=== PATIENT | female | born 1960 | race Caucasian/White ===

== ENCOUNTER 2020-09-14 08:29 | Observation (INO) | payer MEDICARE ==
[~2020-09-14] VITALS: Ht 162.6 cm; Wt 79.6 kg
[2020-09-14] MEDS ORDERED: CHLORHEXIDINE 15 ML UDC ONE (08:48)
[2020-09-14] MEDS ORDERED: LISI40TA9 PO (09:08)
[2020-09-14] MEDS ORDERED: VENL75TA PO (09:08)
[2020-09-14] MEDS ORDERED: ONDA4TAB7 PO (09:08)
[2020-09-14] MEDS ORDERED: LEVO137T3 PO (09:08)
[2020-09-14] MEDS ORDERED: IBUP-1623 PO (09:08)
[2020-09-14 09:15] VITALS: BP 120/72
[2020-09-14] MEDS ORDERED: LACTATED RINGERS 1,000 ML IV SCH (09:30)
[2020-09-14] MEDS ORDERED: CHLORHEXIDINE 15 ML UDC PO ONE (09:30)
[2020-09-14] MEDS ORDERED: FENTANYL PF 250 MCG/5ML ONE (09:54)
[2020-09-14] MEDS ORDERED: MIDAZOLAM 1 MG/ML, 2ML ONE (09:54)
[2020-09-14] MEDS ORDERED: ROCURONIUM 10MG/ML,5ML ONE (09:56)
[2020-09-14] MEDS ORDERED: PROPOFOL 10 MG/ML, 20ML ONE ×2 (09:56→11:23)
[2020-09-14] MEDS ORDERED: DEXAMETHASONE 4 MG/ML, 5ML ONE (09:56)
[2020-09-14 09:57] LABS: ALANINE AMINOTRANSFERASE 25 U/L (12-78); ALBUMIN 3.6 g/dL (3.4-5.0); ANION GAP 7 mmol/L (5-15); CALCIUM 9.1 mg/dL (8.5-10.1); CHLORIDE 112 mmol/L (98-107); CREATININE 0.95 mg/dL (0.55-1.02)
[2020-09-14 09:59] LABS: ALKALINE PHOSPHATASE 134 U/L (45-117); BILIRUBIN,TOTAL 0.2 mg/dL (0.2-1.0); TOTAL PROTEIN 7.5 g/dL (6.4-8.2)
[2020-09-14] MEDS ORDERED: SUCCINYLCHOLINE 20 MG/ML, 10ML ONE (10:10)
[2020-09-14] MEDS ORDERED: CEFAZOLIN 1,000 MG ONE (10:22)
[2020-09-14] MEDS ORDERED: MEPERIDINE/PF 25MG/0.5ML IVPush PRN (10:30)
[2020-09-14] MEDS ORDERED: MIDAZOLAM 1 MG/ML, 2ML IV PRN (10:30)
[2020-09-14] MEDS ORDERED: DIPHENHYDRAMINE 50 MG/ML, 1ML IVPush PRN ×2 (10:30)
[2020-09-14] MEDS ORDERED: LABETALOL 5MG/ML, 20ML IV PRN (10:30)
[2020-09-14] MEDS ORDERED: DIAZEPAM 5 MG/ML, 2ML IVPush PRN (10:30)
[2020-09-14] MEDS ORDERED: PROMETHAZINE 25 MG/ML, 1ML IVPush PRN (10:30)
[2020-09-14] MEDS ORDERED: ALBUTEROL SULFATE 2.5 MG/3 ML NPPB PRN (10:30)
[2020-09-14] MEDS ORDERED: ONDANSETRON 2MG/ML, 2ML IVPush PRN ×2 (10:30→12:00)
[2020-09-14] MEDS ORDERED: hydrALAzine 20 MG/ML, 1ML IV PRN ×2 (10:30→12:00)
[2020-09-14] MEDS ORDERED: EPHEDRINE 50 MG/ML, 1ML IVPush PRN (10:30)
[2020-09-14] MEDS ORDERED: PROMETHAZINE 12.5 MG SUPP PR PRN ×2 (10:30→12:00)
[2020-09-14] MEDS ORDERED: OXYcodone 5 MG/5 ML ORAL.SOL UDC PO PRN (10:30)
[2020-09-14] MEDS ORDERED: BUPIVACAINE/PF-EPI 0.5% 1:200K INFIL ONE (10:32)
[2020-09-14] MEDS ORDERED: GLYCOPYRROLATE 0.2MG/1ML, 5ML ONE (11:18)
[2020-09-14] MEDS ORDERED: NEOSTIGMINE 1 MG/ML, 10ML ONE (11:18)
[2020-09-14] MEDS ORDERED: ONDANSETRON 2MG/ML, 2ML ONE (11:18)
[2020-09-14] MEDS ORDERED: FENTANYL PF 100 MCG/2ML ONE ×3 (11:21→12:15)
[2020-09-14] MEDS ORDERED: KETOROLAC 30 MG/1 ML ONE (11:59)
[2020-09-14] MEDS ORDERED: OXYcodone 5 MG/5 ML ORAL.SOL UDC ONE (11:59)
[2020-09-14] MEDS: LACTATED RINGERS 1,000 ML IV SCH ×3 (12:00→20:34)
[2020-09-14] MEDS ORDERED: PROMETHAZINE 25 MG/ML, 1ML IM PRN (12:00)
[2020-09-14] MEDS ORDERED: KETOROLAC 30 MG/1 ML IVPush PRN (12:00)
[2020-09-14] MEDS ORDERED: METHOCARBAMOL 1,000 MG in DEXTROSE 5% 100 ML IV ONE (12:00)
[2020-09-14] MEDS ORDERED: DIPHENHYDRAMINE 50 MG/ML, 1ML IV PRN (12:00)
[2020-09-14] MEDS ORDERED: ENALAPRILAT 1.25 MG/ML, 2ML IV PRN (12:00)
[2020-09-14] MEDS ORDERED: LORazepam 2 MG/ML, 1ML IV PRN (12:00)
[2020-09-14] MEDS ORDERED: morphine SULFATE 10 MG/ML, 1ML IV PRN (12:00)
[2020-09-14] MEDS ORDERED: HYDROmorphone 1 MG/ML, 1ML INJ ONE (12:03)
[2020-09-14] MEDS: FENTANYL PF 100 MCG/2ML IV PRN ×4 (12:04→12:27)
[2020-09-14] MEDS: HYDROmorphone 1 MG/ML, 1ML INJ IVPush PRN ×2 (12:18→12:32)
[2020-09-14] MEDS: KETOROLAC 30 MG/1 ML IV PRN ×2 (12:19→17:40)
[2020-09-14] MEDS ORDERED: DIAZEPAM 5 MG/ML, 2ML ONE (12:35)
[2020-09-14 13:58] VITALS: BP 122/61
[2020-09-14] MEDS: FAMOTIDINE 20 MG/2 ML IV SCH (14:35)
[2020-09-14] MEDS: HYDROcodone/APAP 7.5-325MG/15ML UDC PO PRN ×3 (16:51→21:30)
[2020-09-14 18:33] VITALS: BP 139/68
[2020-09-14 23:10] VITALS: BP 109/69
[2020-09-15] MEDS: KETOROLAC 30 MG/1 ML IV PRN ×2 (01:12→07:13)
[2020-09-15] MEDS: HYDROcodone/APAP 7.5-325MG/15ML UDC PO PRN ×2 (01:12→07:13)
[2020-09-15] MEDS: FAMOTIDINE 20 MG/2 ML IV SCH (02:35)
[2020-09-15 02:37] VITALS: BP 114/73
[2020-09-15 07:14] VITALS: BP 106/68
[2020-09-15] MEDS ORDERED: CEPH500T PO ×2 (08:02)
[2020-09-15] MEDS ORDERED: HYDR5SOL2 PO (08:05)
[2020-09-15] MEDS ORDERED: VENLAFAXINE 75MG TABLET PO SCH (09:00)
[2020-09-15] MEDS ORDERED: LISINOPRIL 40 MG TABLET PO SCH (09:00)
[2020-09-15] MEDS ORDERED: ENOXAPARIN 40 MG/0.4 ML SQ SCH (09:00)
[2020-09-15] MEDS ORDERED: LEVOTHYROXINE 137 MCG TABLET PO SCH (09:00)
== END 2020-09-15 10:35 | disposition home or self-care (01) ==
LOC: OUT 08:29 → ORIP 12:14 → 4NE 13:27 → DCLOUNGE 09-15 10:32
PROVIDERS: ADMIT Thoracic Surgery (Cardiothoracic Vascular Surgery); ATTEND Thoracic Surgery (Cardiothoracic Vascular Surgery)
DX: K44.9 Diaphragmatic hernia without obstruction or gangrene (principal); Z20.822 Contact with and (suspected) exposure to COVID-19; K42.9 Umbilical hernia without obstruction or gangrene; K66.0 Peritoneal adhesions (postprocedural) (postinfection); I10 Essential (primary) hypertension; E03.9 Hypothyroidism, unspecified; E78.00 Pure hypercholesterolemia, unspecified; K21.9 Gastro-esophageal reflux disease without esophagitis; Z90.710 Acquired absence of both cervix and uterus; Z79.899 Other long term (current) drug therapy
CPT/HCPCS: 36415; 43282; 49652; 80053; 87635; 93005; 96372; 96374; 96375; 96376; C1781; G0378; J0330; J0690; J1100; J1170; J1650; J1885; J2250; J2405; J2704; J2710; J2800; J3010; J3360; J7120